=== PATIENT | female | born 1960 | race Caucasian/White ===

== ENCOUNTER 2019-09-09 07:58 | Day surgery (SDC) | payer BC, OTHER ==
[2019-09-09] MEDS ORDERED: LIDOCAINE 2% MDV (20MG/ML) 20ML VIAL IV ONE (07:59)
[2019-09-09] MEDS ORDERED: PROPOFOL 10 MG/ML VIAL IV ONE (07:59)
[2019-09-09] MEDS ORDERED: ONDANSETRON HCL IV 4 MG/2 ML VIAL IVP ONE (07:59)
--- NOTE | 2019-09-09 12:30 | Operative Note ---
DATE OF SURGERY: 09/09/2019 SURGEON: Dayron Galvan D.O. REFERRING PHYSICIAN: Siva Singh M.D. OPERATION: COLONOSCOPY TO THE CECUM WITH COLD SNARE POLYPECTOMY X3. INDICATION: Colorectal cancer screening. The patient claimed she had her last colonoscopy many years ago in [place]. ANESTHESIA: Intravenous sedation was administered by the Department of Anesthesiology and included Diprivan titrated to effect. PROCEDURE: Following informed consent from this alert individual, including a discussion of the risks and benefits of the procedure and opportunity for the patient to ask questions, the patient was in the left lateral decubitus position. Digital rectal examination was performed. No abnormalities were noted. Following this, the Olympus PCF 180 video colonoscope was inserted in the rectum without resistance. The rectal mucosa had a normal appearance with normal folds and distensibility. The colonoscope was advanced up through the bowel to the level of the cecum without much difficulty. Throughout the bowel, the mucosa appeared normal. The folds were normal, the bowel was fairly well distensible. There were diffuse small diverticula noted in the sigmoid colon. The cecum was defined by noting the appendiceal orifice and the ileocecal valve. From the case of the cecum, the colonoscope was slowly withdrawn. The colon preparation overall was good. There were 2 polyps noted in the descending colon, measuring 4 and 6 mm in size. Each was removed with cold snare polypectomy and suctioned through the colonoscope into a collection trap. There was a 3rd polyp measuring 4 mm in size noted in the sigmoid colon, also removed with cold snare polypectomy. Retroflexion in the rectum was endoscopically normal. The endoscope was straightened and withdrawn. The patient tolerated the procedure well and was returned to the recovery area in stable condition. IMPRESSION: 1. Two descending colon polyps measuring 4 and 6 mm in size and 1 sigmoid polyp measuring 4 mm in size, all removed with cold snare polypectomy and suctioned without difficulty into the collection trap. 2. Sigmoid diverticulosis which was mild. RECOMMENDATIONS: Further recommendations will be forthcoming pending results of the pathology obtained today. The patient will be following up with primary care. As always, thank you for allowing me to participate in the care of your patient. LAUREN
== END 2019-09-09 09:46 | disposition home or self-care (01) ==
LOC: HOP 07:58
PROVIDERS: ATTEND Internal Medicine Gastroenterology
DX: Z12.11 Encounter for screening for malignant neoplasm of colon (principal); D12.4 Benign neoplasm of descending colon; K63.5 Polyp of colon; K57.30 Diverticulosis of large intestine without perforation or abscess without bleeding; J44.9 Chronic obstructive pulmonary disease, unspecified
CPT/HCPCS: J2405